=== PATIENT | male | born 1995 | race African-American/Black ===

== ENCOUNTER 2021-04-19 22:25 | Emergency (ER) | payer OTHER ==
[2021-04-19 22:39] VITALS: BP 107/71; PULSE 64; TEMP 97.8; BMI 27.4
== END 2021-04-19 23:37 | disposition home or self-care (01) ==
LOC: JER 22:25
DX: L73.1 Pseudofolliculitis barbae (principal)
CPT/HCPCS: 99281-25

== ENCOUNTER 2022-03-20 23:51 | Emergency (ER) | payer OTHER ==
[2022-03-21 01:03] VITALS: BP 120/73; PULSE 77; TEMP 98.4; BMI 28.2
[2022-03-21] MEDS ORDERED: SULFAMETHOXAZOLE/TRIMETHOPRIM 800MG/160MG D.S. TABLET PO ONE (01:35)
[2022-03-21] MEDS ORDERED: AMOXICILLIN 500 MG CAPSULE (FP) PO ONE (01:36)
[2022-03-21] MEDS ORDERED: PIPERACILLIN/TAZOB 4.5 GM 4.5 GM in DEXTROSE 5%-WATER 100 ML IVPB ONE (01:41)
[2022-03-21] MEDS ORDERED: VANCOMYCIN 1,000 MG in DEXTROSE 5%-WATER - 250 ML IVPB ONE (01:41)
[2022-03-21] MEDS ORDERED: PIPERACILLIN/TAZOB 4.5 GM 4.5 GM/100 ML BAG IVPB ONE (01:50)
[2022-03-21] MEDS ORDERED: VANCOMYCIN 1 GRAM (PRE-DOCKED) 1,000 MG/250 ML BAG IVPB ONE (01:50)
[2022-03-21 02:41] LABS: BASO % 1.1 % (0-2.0); EOS % 0.9 % (0-4.5); HEMATOCRIT 38.2 % (35.4-49); HEMOGLOBIN 13.4 GM/dL (11.7-16.9); LYMPH % 28.6 % (8-40); MCH 29.5 pg (25.7-33.7); MEAN CELL VOLUME 84.4 fl (80-96); MEAN PLT VOLUME 8.1 fl (7.5-11.1); MONO % 6.9 % (3.8-10.2); NEUT % 62.5 % (42.8-82.8); PLATELET COUNT 299 10^3/uL (134-434); RBC 4.53 M/mm3 (4.00-5.60); RDW 14.3 % (11.9-15.9)
[2022-03-21 02:47] LABS: ALBUMIN 3.9 g/dl (3.4-5.0); BLOOD UREA NITROGEN 8.6 mg/dL (7-18); CALCIUM 8.8 mg/dL (8.5-10.1)
[2022-03-21 02:50] LABS: CREATININE 0.9 mg/dL (0.55-1.3)
[2022-03-21 02:52] LABS: BILIRUBIN,TOTAL 0.3 mg/dL (0.2-1); TOT PROT 6.5 g/dl (6.4-8.2)
== END 2022-03-21 05:20 | disposition home or self-care (01) ==
LOC: JER 23:51
DX: L03.213 Periorbital cellulitis (principal)
CPT/HCPCS: 36415; 70481-TC; 80053; 85025; 96374; 96375; 99285-25